=== PATIENT | male | born 1950 | race Caucasian/White ===

== ENCOUNTER 2016-12-24 16:03 | Observation (INO) | payer OTHER, MEDICARE ==
[~2016-12-24 16:03] MED LIST: ADVIL PO; ALFUZOSIN HCL10 MG PO; AMBIEN CR12.5 MG PO; AMBIEN CR12.5 MG/BO PO; ASCORBIC ACID500 M2 PO; AUGMENTIN 875-1 EAC2 PO; CALCIUM 600 +1 EA10 PO; CALCIUM 600 +1 EAC2 PO; CHOLESTYRAMINE378 G1 PO; CIPRO500 MG PO; CITRACAL; CITRUCEL479 GM; CITRUCEL500 MG PO; CULTURELLE1 CA1 NG; CULTURELLE1 EAC1 PO; CYANOCOBAL1000 MCG/3 IM; CYANOCOBAL1000 MCG/3 SC; CYANOCOBALAMIN; Citracal PO; DAILY MULTIPLE1 EAC2 PO; ENTOCORT EC3 M1 PO; ENTOCORT EC3 MG PO; FEOSOL325 M1 PO; FLOMAX0.4 MG PO; FOSAMAX; FOSAMAX70 MG PO; HUMIRA CRO40 MG/0.8 SC; IBUPROFEN800 M1 PO; IMODIUM A-D2 M3 PO; IMURAN50 MG PO; LEXAPRO20 M1 PO; LEXAPRO20 M2 PO; LOPERAMIDE2 M2 PO; METAMUCIL1 EACH PO; METAMUCIL1 PKT PO; MIRALAX119 G1 PO; MIRALAX17 G2 PO; NORCO 5/325 TAB1 TAB PO; NUCYNTA50 MG PO; NYSTATIN100000 UNI SSW; OMEPRAZOLE20 M2 PO; OMEPRAZOLE20 M3 PO; OXYCODONE HCL10 M2 PO; OXYCODONE HCL20 M3 PO; OXYCONTIN40 M2 PO; PENTASA500 MG PO; PENTASA500 MG/CAP PO; PRENATAL-U CAPS1 CAP PO; PRILOSEC20 M1 PO; QUESTRAN LIGH4 G/PKT PO; QUESTRAN LIGHT210 G1 PO; RESTASIS0.4 ML/EA OP; SLOW-MAG71.5 MG PO; THERAGRAN-M1 TAB PO; TRAZODONE HCL50 M1 PO; TRAZODONE100 MG PO; TRIPLE ANTIBIOT30 GM TP; VANCOMYCIN PO; VITAMIN C1000 M1 PO; VITAMIN D-32000 UNI3 PO; VITAMIN D250000 UNI1 PO; VITRON-C TABLE1 EACH PO; ZINC SULFATE220 M2 PO; ZOFRAN8 M1 PO; ZOFRAN8 MG PO; [UNRECOGNIZED DRUG - OTHER]
[2016-12-24] MEDS ORDERED: MUPIROCIN22 G2 TP (16:42)
[2016-12-24] MEDS ORDERED: LIDOCAINE35.44 G1 TP (16:47)
[2016-12-24] MEDS ORDERED: ZOFRAN8 M1 PO (16:50)
[2016-12-24] MEDS ORDERED: FEOSOL325 M1 PO (16:51)
[2016-12-24] MEDS ORDERED: ZINC SULFATE220 M1 PO (16:51)
[2016-12-24] MEDS ORDERED: NIFEDIPINE TP (16:56)
[2016-12-24] MEDS ORDERED: FOSAMAX70 M1 PO (17:09)
[2016-12-24] MEDS ORDERED: IMURAN50 M1 PO (17:09)
[2016-12-24] MEDS ORDERED: LOPERAMIDE2 M2 PO (17:10)
[2016-12-24] MEDS ORDERED: VITAMIN C500 M3 PO (17:10)
[2016-12-24] MEDS ORDERED: ENTYVIO300 MG IV (17:11)
--- NOTE | 2016-12-24 20:33 | NUR ---
VIRTUAL CARE NOTE: PT. IS IN BED, STATES PAIN IS DOING PRETTY WELL AT THIS. HAD QUESTIONS WITH THE STAFF ON THE UNIT REGARDING LAB DRAWS AND PT. STATES DOES NOT WANT TO HAVE IT DONE. WILL LET ENERGY EFFICIENCY ENGINEER IMS PROVIDER KNOW OF PT'S WISHES. INSTRUCTED TO CALL FOR FURTHER NEEDS. STATES VERBAL AGREEMENT.
[2016-12-25 02:13] LABS: BASO % 0.3 % (0-2); EOS % 2.9 % (0-7); EOSINOPHIL ABSOLUTE COUNT 0.3 tho/cmm (0.0-0.7); HCT-HEMATOCRIT 28.8 % (36.0-53.5); HGB-HEMOGLOBIN 8.9 gm/dl (13.5-17.0); IMMATURE GRANULOCYTES ABSOLUTE 0.02 tho/cmm (0-0.03); IMMATURE GRANULOCYTES PERCENT 0.2 % (0-0.3); LYMPH % 10.9 % (20-45); LYMPH ABSOLUTE COUNT 1.2 tho/cmm (0.8-4.5); MCH (MEAN CORPUSCULAR HGB) 29.3 pg (28.0-32.0); MCHC MEAN CORPUSCULAR HGB CONC 30.9 % (32.0-36.0); MCV (MEAN CELL VOLUME) 94.7 fl (82.0-96.0); MEAN PLATELET VOLUME 8.6 cmc (9.4-12.4); MONO % 7.5 % (0-12); MONOCYTE ABSOLUTE COUNT 0.8 tho/cmm (0.0-1.2); NEUTROPHIL ABSOLUTE COUNT 8.3 tho/cmm (1.6-8.0); NEUTROPHIL-AUTOMATED 8.3 tho/cmm (1.6-8.0); NEUTROPHILS % 78.2 % (40-80); PLATELET COUNT 362 tho/cmm (150-450); RED BLOOD COUNT 3.04 mil/cmm (4.40-5.70); RED CELL DISTRIBUTION WIDTH 14.6 % (12.4-16.4); WHITE BLOOD COUNT 10.6 tho/cmm (4.0-10.0)
[2016-12-25 02:15] LABS: INR 1.1 INR (0.9-1.1); PROTHROMBIN TIME 12.4 SECONDS (9.0-13.6)
[2016-12-25 02:24] LABS: ANION GAP 11 mmol/L (0-20); BLOOD UREA NITROGEN 15 mg/dl (6-24); CALCIUM 8.3 mg/dl (8.5-10.5); CARBON DIOXIDE-VENOUS 27 mmol/L (22-32); CHLORIDE 103 mmol/l (96-110); CREATININE 1.09 mg/dl (0.60-1.30); GLUCOSE 101 mg/dL (70-110); POTASSIUM 4.3 mmol/L (3.7-5.1); SODIUM 137 mmol/L (135-145); eGFR VALUE FOR BLACK 81 mL/Min
--- NOTE | 2016-12-25 09:52 | NUR ---
VIRTUAL CARE NOTE: PT DRESSED READY TO GO HOME, AT BEDSIDE. DISCHARGE INSTRUCTIONS GIVEN TO PT, REINFORCED ABSCESS DRAIN FLUSH AND CARE AT HOME. PT HAD THE ABSCESS CARE BEFORE SO HE'S FAMILIAR WITH THE CARES. PT AND SPOUSE DENIED QUESTIONS OR CONCERNS. INFORMED FLOOR NURSE DISCHARGE TEACHING DONE. DRAIN SUPPLIED PROVIDED TO PT PER FLOOR NURSE.
== END 2016-12-25 10:15 ==
LOC: 5WD 16:03
PROVIDERS: ADMIT Internal Medicine
PROC: 0D9W30Z Drainage of Peritoneum with Drainage Device, Percutaneous Approach (ICD-10-PCS; principal; 2016-12-24)
DX: K65.1 Peritoneal abscess (principal); R10.9 Unspecified abdominal pain; G89.29 Other chronic pain; K50.90 Crohn's disease, unspecified, without complications; Z88.1 Allergy status to other antibiotic agents; Z79.899 Other long term (current) drug therapy; Z90.49 Acquired absence of other specified parts of digestive tract; Z85.46 Personal history of malignant neoplasm of prostate
CPT/HCPCS: G0378; G0379; J2250; J3010; J7500